=== PATIENT | male | born 1990 | race Caucasian/White ===

== ENCOUNTER 2016-11-15 08:45 | Outpatient (RCR) | payer OTHER | END 2016-11-20 | LOC: M OT 08:45 | PROVIDERS: ATTEND Physician Assistant Surgical | DX: Z51.89 Encounter for other specified aftercare (principal); G56.02 Carpal tunnel syndrome, left upper limb ==

== ENCOUNTER → 2016-11-20 | Outpatient (REF) | payer OTHER | LOC: M LAB REF 13:27 | PROVIDERS: ATTEND Physician Assistant | DX: B34.9 Viral infection, unspecified (principal) ==

== ENCOUNTER 2016-11-29 08:41 | Outpatient (RCR) | payer OTHER | END 2016-11-29 12:00 | disposition home or self-care (01) | LOC: M OT 08:41 | PROVIDERS: ATTEND Physician Assistant Surgical | DX: Z51.89 Encounter for other specified aftercare (principal); Z47.89 Encounter for other orthopedic aftercare ==

== ENCOUNTER → 2016-12-12 | Outpatient (REF) | payer BC | LOC: M LAB REF 16:34 | PROVIDERS: ATTEND Physician Assistant | DX: R10.33 Periumbilical pain (principal) ==

== ENCOUNTER → 2017-01-22 | Outpatient (CLI) | payer BC ==
--- NOTE | 2017-01-22 12:33 | REP ---
RIGHT KNEE SERIES, FIVE VIEWS: There is no evidence of an acute fracture, dislocation or intrinsic bone disease. The joint spaces appear unremarkable. I do not see evidence of a significant joint effusion. IMPRESSION: No fracture or dislocation. Signed by Rob Morales MD 01/22/2017 04:39 P
== END ==
LOC: M WUC 10:57
PROVIDERS: ATTEND Physician Assistant
DX: M22.2X1 Patellofemoral disorders, right knee (principal)

== ENCOUNTER → 2018-02-21 | Outpatient (CLI) | payer BC ==
[2018-02-21 16:42] LABS: BASO % 0.3 % (0.0-1.0); EOS # 0.1 10^3/uL (0.0-0.50); EOS % 1.2 % (0.0-3.0); HEMATOCRIT 47.9 % (42.0-52.0); HEMOGLOBIN 15.8 g/dl (13.5-17.5); IMMATURE GRANULOCYTE % 0.1 % (0-3.0); LYMPH # 2.5 10^3/uL (1.5-6.5); LYMPH % 37.5 % (24.0-44.0); MEAN CORPUSCULAR HEMOGLOBIN 28.7 pg (27.0-33.0); MEAN CORPUSCULAR VOLUME 86.9 fl (80.0-96.0); MONO # 0.4 10^3/uL (0.0-0.8); MONO % 5.7 % (0.0-5.0); NEUTROPHILS # 3.7 10^3/uL (1.8-7.7); NEUTROPHILS % 55.2 % (36.0-66.0); PLATELET COUNT, AUTOMATED 231 10^3/uL (150-450); RED BLOOD COUNT 5.51 10^6/uL (4.30-6.10); RED CELL DISTRIBUTION WIDTH 12.4 % (11.5-14.5); WHITE BLOOD COUNT 6.7 10^3/uL (4.0-10.0)
[2018-02-21 16:43] LABS: ALBUMIN 4.1 GM/DL (3.2-5.2); ALBUMIN/GLOBULIN RATIO 1.14 (1.00-1.93); ALKALINE PHOSPHATASE 53 U/L (45-117); ALT/SGPT 63 U/L (12-78); ANION GAP 6 MEQ/L (8-16); AST/SGOT 30 U/L (7-37); BILIRUBIN,TOTAL 0.4 MG/DL (0.2-1.0); BLOOD UREA NITROGEN 14 MG/DL (7-18); CALCIUM LEVEL 9.3 MG/DL (8.5-10.1); CARBON DIOXIDE LEVEL 32 MEQ/L (21-32); CHLORIDE LEVEL 104 MEQ/L (98-107); CREATININE FOR GFR 1.03 MG/DL (0.70-1.30); GLOMERULAR FILTRATION RATE > 60.0 (>60); GLUCOSE, FASTING 94 MG/DL (70-100); POTASSIUM SERUM 4.3 MEQ/L (3.5-5.1); SODIUM LEVEL 142 MEQ/L (136-145); TOTAL PROTEIN 7.7 GM/DL (6.4-8.2)
== END ==
LOC: M WUC 13:26
DX: J06.9 Acute upper respiratory infection, unspecified (principal)
CPT/HCPCS: 80053

== ENCOUNTER → 2018-12-18 | Outpatient (RCR) | payer OTHER ==
[~2018-12-18] MED LIST: GENT3OPD OD
== END ==
LOC: M PT 12-02 08:58
PROVIDERS: ATTEND Orthopaedic Surgery
DX: S43.432D Superior glenoid labrum lesion of left shoulder, subsequent encounter (principal); Y99.8 Other external cause status; X58.XXXA Exposure to other specified factors, initial encounter

== ENCOUNTER 2019-01-14 10:49 | Outpatient (RCR) | payer OTHER | END 2019-01-18 | LOC: M PT 10:49 | PROVIDERS: ATTEND Orthopaedic Surgery | DX: S43.432D Superior glenoid labrum lesion of left shoulder, subsequent encounter (principal) ==